=== PATIENT | female | born 1935 | race Caucasian/White ===

== ENCOUNTER → 2021-07-06 17:51 | Outpatient (CLI) | payer MEDICARE, OTHER, SELFPAY ==
[2021-07-06 18:15] LABS: Alanine Aminotransferase 15 U/L (12-78); Albumin Level 3.7 g/dl (3.5-5.0); Albumin/Globulin Ratio 1.2 (1.1-1.8); Alkaline Phosphatase 86 U/L (38-126); Anion Gap 11.6 mEq/L (5-15); Aspartate Amino Transferase 53 U/L (14-36); Bilirubin,Total 0.6 mg/dl (0.2-1.3); Blood Urea Nitrogen 9 mg/dl (7-17); Calcium 9.4 mg/dl (8.4-10.2); Carbon Dioxide 31 mmol/L (22.0-30.0); Chloride 104 mmol/L (98-107); Chol/HDL Ratio 3.1 (1-3.5); Cholesterol 227 mg/dl (140-200); Estimated Glomerular Filt Rate 59 ml/min (>60); GFR (African American) 72 ML/MIN (>60); Glucose 132 mg/dl (74-100); HDL Cholesterol 73 mg/dl (40-60); Potassium 4.6 mmoL/L (3.5-5.1); Sodium 142 mmol/L (136-145); Total Protein,Serum 6.7 g/dl (6.3-8.2); Triglycerides 227 mg/dl (30-150); VLDL Cholesterol 45 mg/dL (0-40)
[2021-07-06 18:26] LABS: Direct LDL Cholesterol 103.67 mg/dL (100-129)
[2021-07-06 20:14] LABS: Thyroid Stimulating Hormone 5.23 uIU/mL (0.465-4.68)
== END ==
PROVIDERS: Visit Provider Nurse Practitioner Family
DX: Z00.00 Encounter for general adult medical examination without abnormal findings (principal); I10 Essential (primary) hypertension; E78.5 Hyperlipidemia, unspecified; E03.9 Hypothyroidism, unspecified
CPT/HCPCS: 80053; 80061; 84443

== ENCOUNTER → 2022-06-11 17:44 | Outpatient (CLI) | payer MEDICARE, OTHER, SELFPAY ==
[2022-06-11 18:20] LABS: Basophils # 0.1 K/mm3 (0-0.2); Basophils % 1.2 % (0.1-2.0); Eosinophils # 0.2 K/mm3 (0.0-0.4); Eosinophils % 1.6 % (0.1-12.0); Hematocrit 43.9 % (37.0-47.0); Lymphocytes # 4.5 K/mm3 (0.7-4.5); Lymphocytes % 41.9 % (10-50); Mean Corpuscular HGB Conc 31.9 g/dL (31.8-35.4); Mean Corpuscular Hemoglobin 30.1 pg (27.0-31.2); Mean Corpuscular Volume 94.5 fl (81-99); Mean Platelet Volume 8.1 fl (7.4-10.4); Monocytes # 0.5 K/mm3 (0.1-1.0); Monocytes % 4.6 % (1.7-9.3); Neutrophils # 5.4 K/mm3 (1.8-7.8); Neutrophils % 50.8 % (37.0-80.0); Platelet Count 315 K/mm3 (142-424); Red Blood Count 4.64 M/mm3 (4.20-5.40); Red Cell Distribution Width 14.1 % (11.5-17.5); White Blood Count 10.7 K/mm3 (4.8-10.8)
[2022-06-11 18:26] LABS: Chloride 100 mmol/L (98-107); Sodium 141 mmol/L (136-145)
[2022-06-11 18:28] LABS: Blood Urea Nitrogen 9 mg/dl (7-17); Estimated Glomerular Filt Rate 95 ml/min (>60); GFR (African American) 114 ML/MIN (>60)
[2022-06-11 18:29] LABS: Alanine Aminotransferase 16 U/L (12-78); Albumin Level 4.3 g/dl (3.5-5.0); Albumin/Globulin Ratio 1.5 (1.1-1.8); Alkaline Phosphatase 134 U/L (38-126); Aspartate Amino Transferase 33 U/L (14-36); Bilirubin,Total 0.2 mg/dl (0.2-1.3); Calcium 8.9 mg/dl (8.4-10.2); Carbon Dioxide 30 mmol/L (22.0-30.0); Globulin 2.8 g/dL (1.3-3.2); Glucose 135 mg/dl (74-100); Total Protein,Serum 7.1 g/dl (6.3-8.2)
[2022-06-11 19:00] LABS: Thyroid Stimulating Hormone 6.28 uIU/mL (0.465-4.68)
== END ==
PROVIDERS: PCP Family Medicine; Visit Provider Student in an Organized Health Care Education/Training Program
DX: E03.9 Hypothyroidism, unspecified (principal); I10 Essential (primary) hypertension
CPT/HCPCS: 80053; 84443; 85025

== ENCOUNTER 2022-07-02 13:51 | Emergency (ER) | payer MEDICARE, OTHER, SELFPAY ==
[2022-07-02 13:50] VITALS: BP 146/61; PULSE 75; RESP 18; O2SAT 98
[2022-07-02 13:53] VITALS: BP 160/68; PULSE 72; RESP 18; TEMP 36.9; O2SAT 98; BMI 23.0
[2022-07-02 14:00] VITALS: BP 151/75; PULSE 75; RESP 18; O2SAT 98
--- NOTE | 2022-07-02 14:05 | XR_ITS ---
FINAL REPORT CLINICAL HISTORY: low back pain, lumbar radic FINDINGS: AP and lateral views were obtained. There are severe L1 and moderate L3 and L5 compression fractures of uncertain age. Kyphoplasty is centered at L1. There is mild retrolisthesis of L1 on L2. There is mild leftward curvature. IMPRESSION: Severe and moderate compression fractures of indeterminate age. If indicated, MRI could further evaluate. Reviewed, Interpreted and Dictated by Kostas Bowman III, MD Transcribed by Fer Purdy Authenticated and . [facility]
--- NOTE | 2022-07-02 14:06 | HMH.EDBACK ---
Discharge Plan Disposition Patient Disposition: Home, Self-Care Prescriptions Prescriptions: New prednisone 10 mg tablet 10 mg PO DAILY Qty: 54 0RF Rx Instructions: Please take 60 mg p.o. daily for 2 days followed by 50 mg p.o. daily for 2 days followed by 40 mg daily for 2 days followed by 30 mg daily for 2 days followed by 20 mg daily for 2 days followed by 10 mg daily for 2 days No Action levothyroxine [Synthroid] 50 mcg tablet 50 mcg PO DAILY memantine [Namenda] 10 mg tablet 10 mg PO BID donepezil [Aricept] 10 mg tablet 10 mg PO DAILY cyanocobalamin (vitamin B-12) 1,000 mcg capsule 1,000 mcg PO DAILY Referrals Follow up/Referrals: You Norris MD [Primary Care Provider] - See instructions Activity Restrictions/Add. Instructions Additional Instructions/Restrictions: I recommend that you call your PCP tomorrow to get set up for a back brace. Please tell him that you have been diagnosed with a subacute compression fracture that does not require surgical intervention but could benefit from bracing. Please ensure that you return with any new symptoms that include bowel or bladder incontinence, numbness within your groin. Clinical Impressions Clinical Impression: Compression fracture, Acute lumbar radiculopathy Instructions Patient Instructions: DI for Low Back Pain Discharge ED Provider: Dax Jacobs Back Pain HPI General Chief Complaint: Back Pain/Injury Stated Complaint: back pain Time Seen by Provider: 07/02/22 14:00 Mode of Arrival: EMS Source of Information: Patient Limitations: No Limitations Description of Symptoms (Recalled from ER Triage Doc. by RN): Pt c/o back pain that is causing tingling in BLE. Advises that she moved a large mum yesterday and thinks that may be the cause. History of Present Illness HPI Narrative: Patient is a 87-year-old female with a past medical history of hypothyroidism and hypertension who presents with concern for back pain and bilateral lower extremity tingling. She states that about a month ago she had a ground-level fall and has been having some back pain since then. She has been evaluated by her PCP for this who did not think that she needed any x-rays at that time and she had been improving but she says that she was moving a large plant yesterday and since then has now been having some tingling that is going down both of her legs. She says that the tingling in the right leg is constant but she has intermittent tingling in her left leg. She says it is worse when she raises her legs up. Her symptoms are improved with leaning forward. Denies any bowel or bladder incontinence. Denies any saddle anesthesia. Related Data Home Medications Medication Instructions Recorded Confirmed donepezil 10 mg tablet (Aricept) 10 mg PO DAILY 06/11/22 06/20/22 levothyroxine 50 mcg tablet 50 mcg PO DAILY 06/11/22 06/20/22 (Synthroid) memantine 10 mg tablet (Namenda) 10 mg PO BID 06/11/22 06/20/22 cyanocobalamin (vitamin B-12) 1,000 mcg PO DAILY 06/20/22 06/20/22 1,000 mcg capsule Previous Rx's Medication Instructions Recorded prednisone 10 mg tablet 10 mg PO DAILY #54 tabs 07/02/22 Allergies Allergy/AdvReac Type Severity Reaction Status Date / Time CODEINE Allergy Unknown JUST DID Uncoded 06/20/22 16:07 NOT FEEL RIGHT From PERCOCET Allergy Unknown Uncoded 06/20/22 16:07 NSAID Allergy Unknown Uncoded 06/20/22 16:07 [facility] Medical History Alzheimer disease Hypertension Hypothyroid Social History Smoking Status: Never smoker alcohol intake: never substance use type: denies use current occupational status: retired Travel in the last 8 weeks: None ROS Obtained: Yes All systems reviewed & no additional complaints except as documented A 14 point review system was obtained and otherwise negativ
--- NOTE | 2022-07-02 14:13 | PC.NURSE ---
Pt to rad
--- NOTE | 2022-07-02 14:23 | PC.NURSE ---
pt back from radiology
[2022-07-02 14:30] VITALS: BP 142/74; PULSE 81; RESP 18; O2SAT 98
--- NOTE | 2022-07-02 15:33 | PC.NURSE ---
CARE MANAGEMENT HAS APPROVED MRI , DIONICIO NOTIFIED
--- NOTE | 2022-07-02 15:38 | MR_ITS ---
PROCEDURE INFORMATION: Exam: MR Lumbar Spine Without Contrast Exam date and time: 07/02/2022 4:23 PM Age: 87 years old Clinical indication: Low back pain; Additional info: Fractures. Bilateral leg tingling and pain worse in right leg. No injury or trauma. Patient fell 1 month ago. [place] a pop in back. TECHNIQUE: Imaging protocol: Magnetic resonance imaging of the lumbar spine without contrast. COMPARISON: CR XR LUMBAR SPINE 2-3V 07/02/2022 2:05 PM FINDINGS: Bones/joints: There is a chronic compression fracture deformity at L1 with greater than 50% decrease in vertebral body height. Subacute compression fracture deformity L3 with approximate 50% decrease in vertebral body height of the mid aspect of the L3 vertebral body. At L5:Mild subacute compression fracture deformity L5 with edematous changes involving the superior vertebral endplate. Approximate 30% decrease in vertebral body height. Spinal cord: Visualized cord, conus medullaris and cauda equina are unremarkable without compression. L1-L2: The conus extends inferiorly to the level of L1-L2. At The 2-2.5 mm retropulsion of the posterosuperior and inferior vertebral endplates is demonstrated. Borderline spinal canal narrowing. Moderate-moderately severe bilateral neural foraminal stenosis. L2-L3: 2-2.5 mm broad-based and lateral disc bulge. Mild-moderate bilateral neural foraminal stenosis. L3-L4: 3 mm broad based on lateral disc bulge. AP dimensions of the spinal canal: 9 mm. L4-L5: Moderate facet and mild-moderate ligamentum flavum hypertrophy. Approximate 2 mm disc bulge. L5-S1: 4 mm degenerative anterolisthesis of L5 with respect S1. Spinal canal neural foramina patent. Soft tissues: Unremarkable. IMPRESSION: 1. Subacute compression fracture deformity L3 with approximate 50% decrease in vertebral body height of the mid aspect of the L3 vertebral body. 2. Subacute compression fracture deformity L5 with edematous changes involving the superior vertebral endplate. Approximate 30% decrease in vertebral body height. 3. Chronic L1 compression fracture deformity with greater than 50% decrease in vertebral body height.
[2022-07-02 19:00] VITALS: BP 149/69; PULSE 79; RESP 16; TEMP 36.9; O2SAT 99
== END 2022-07-02 19:02 | disposition home or self-care (01) ==
PROVIDERS: Emergency Provider Student in an Organized Health Care Education/Training Program; PCP Family Medicine
DX: M48.56XA Collapsed vertebra, not elsewhere classified, lumbar region, initial encounter for fracture (principal); I10 Essential (primary) hypertension; E03.9 Hypothyroidism, unspecified; G30.9 Alzheimer's disease, unspecified; F02.80 Dementia in other diseases classified elsewhere, unspecified severity, without behavioral disturbance, psychotic disturbance, mood disturbance, and anxiety; Z79.52 Long term (current) use of systemic steroids; Z79.899 Other long term (current) drug therapy; Z88.5 Allergy status to narcotic agent; Z88.6 Allergy status to analgesic agent
CPT/HCPCS: 72100; 72148; 76376; 99285

== ENCOUNTER 2022-09-06 20:21 | Inpatient (IN) | payer MEDICARE, OTHER, SELFPAY ==
[2022-09-06 20:21] VITALS: BP 103/59; PULSE 87; RESP 19; TEMP 36.5; O2SAT 99; BMI 21.4
--- NOTE | 2022-09-06 20:27 | ECG_ITS ---
APPROVED REPORT Exam: Resting ECG HR:91 bpm ECG Measurements Heart Rate 91 AXES QRSd 73 QRS 70 QT 339 T 244 QTc 388 Conclusion ATRIAL FIBRILLATION WITH ABERRANT CONDUCTION OR VENTRICULAR PREMATURE COMPLEXES ST DEVIATION AND MODERATE T-WAVE ABNORMALITY, CONSIDER ANTEROLATERAL ISCHEMIA [-0.1+ mV T-WAVE IN V3-V6] ST DEVIATION AND MODERATE T-WAVE ABNORMALITY, CONSIDER INFERIOR ISCHEMIA [-0.1+ mV T-WAVE IN II/aVF] ABNORMAL ECG UNCONFIRMED REPORT Electronically signed by : Sherman Rodriguez MD 09/07/2022 12:11:03
[2022-09-06 20:54] LABS: ABG Base Excess -5.3 mmol/L (-2.4-2.3); ABG Oxygen Saturation 97 % (90-100); ABG PCO2 29.4 mmhg (35.0-45.0); ABG PH 7.43 mmol/L (7.35-7.45); ABG PO2 97.6 mmhg (80-100); ABG TCO2 19.9 mmhg (23-27)
[2022-09-06 20:56] LABS: Allen's Test Non Applicable; Oxygen 2LPM %; Source Right Femoral
[2022-09-06 21:06] VITALS: BMI 21.4
--- NOTE | 2022-09-06 21:08 | CT_ITS ---
PROCEDURE INFORMATION: Exam: CT Abdomen And Pelvis With Contrast Exam date and time: 09/06/2022 9:40 PM Age: 87 years old Clinical indication: Other: Gi bleed; Additional info: Upper lower gi bleed TECHNIQUE: Imaging protocol: Computed tomography of the abdomen and pelvis with contrast. Radiation optimization: All CT scans at this facility use at least one of these dose optimization techniques: automated exposure control; mA and/or kV adjustment per patient size (includes targeted exams where dose is matched to clinical indication); or iterative reconstruction. Contrast material: ISOVUE; Contrast volume: 75 ml; Contrast route: IV; COMPARISON: MR LUMBAR SPINE WO CON 07/02/2022 4:23 PM FINDINGS: Liver: 14 mm hypodensity within the liver near the falciform. Gallbladder and bile ducts: No calcified stones. No ductal dilation. Pancreas: Normal enhancement. No ductal dilation. Spleen: No splenomegaly. Adrenal glands: No mass. Kidneys and ureters: 14 mm left renal cyst. Stomach and bowel: Trace high-density material within the mid descending and distal rectosigmoid near the anus. Appendix: No evidence of appendicitis. Intraperitoneal space: No significant fluid collection. No free air. Vasculature: Calcified atherosclerosis. No abdominal aortic aneurysm. Lymph nodes: No enlarged lymph nodes. Urinary bladder: Sanchez catheter within the urinary bladder which is decompressed and not well evaluated. Reproductive: No acute abnormality. Bones/joints: Stable severe compression deformities of L1 and L3 and moderate compression deformity of L5. Soft tissues: No soft tissue swelling. IMPRESSION: Trace high-density material within the mid descending and distal rectosigmoid near the anus which is nonspecific but may be related to the history of GI bleed. Other chronic and incidental findings described above.
--- NOTE | 2022-09-06 21:08 | XR_ITS ---
PROCEDURE INFORMATION: Exam: XR Chest Exam date and time: 09/06/2022 9:58 PM Age: 87 years old Clinical indication: Other: Syncope, gi bleed TECHNIQUE: Imaging protocol: Radiologic exam of the chest. Views: 1 view. COMPARISON: CT ABDOMEN PELVIS W CON 09/06/2022 9:40 PM FINDINGS: Lungs: Interstitial coarsening. No consolidation. Pleural spaces: No pneumothorax. Heart/Mediastinum: No cardiomegaly. Bones/joints: Degenerative changes of the shoulders. IMPRESSION: Chronic changes without acute process.
[2022-09-06 21:15] LABS: Coronavirus 19, PCR Not Detected (NotDetected); Influenza A, PCR Not Detected (NotDetected); Influenza B, PCR Not Detected (NotDetected)
[2022-09-06 21:15] LABS: Microscopic, Urine URINE MICROSCOPIC (MICROSCOPIC)
[2022-09-06 21:20] LABS: Basophils # 0.1 K/mm3 (0-0.2); Basophils % 0.3 % (0.1-2.0); Eosinophils % 0.3 % (0.1-12.0); Hematocrit 28.8 % (37.0-47.0); Hemoglobin 9.1 g/dL (12.2-16.2); Lymphocytes # 1.5 K/mm3 (0.7-4.5); Lymphocytes % 9.5 % (10-50); Mean Corpuscular HGB Conc 31.8 g/dL (31.8-35.4); Mean Corpuscular Volume 97.5 fl (81-99); Mean Platelet Volume 9.9 fl (7.4-10.4); Monocytes # 0.6 K/mm3 (0.1-1.0); Monocytes % 3.4 % (1.7-9.3); Neutrophils # 13.9 K/mm3 (1.8-7.8); Neutrophils % 86.6 % (37.0-80.0); Platelet Count 343 K/mm3 (142-424); Red Blood Count 2.96 M/mm3 (4.20-5.40); White Blood Count 16.1 K/mm3 (4.8-10.8)
[2022-09-06 21:21] LABS: Appearance,Urine SL CLOUDY (Clear); Blood, Urine TRACE-I (Negative); Color,Urine YELLOW (Yellow); Glucose,Urine (UA) Negative (Negative); Ketones,Urine 3+ (Negative); Leukocyte Esterase,Urine Negative (Negative); Nitrate,Urine Negative (Negative); PH,Urine 5.5 (5.0-8.5); Protein,Urine TRACE (Negative); Specific Gravity, Urine 1.025 (1.005-1.030); Urobilinogen,Urine 0.2 EU/dl (0.2)
[2022-09-06 21:24] LABS: Chloride 101 mmol/L (98-107); Potassium 3.1 mmoL/L (3.5-5.1); Sodium 137 mmol/L (136-145)
[2022-09-06 21:26] LABS: Bilirubin,Urine 3+ (Negative)
[2022-09-06 21:26] LABS: INR 1.06 (0.9-1.1); Prothrombin Time 11.4 seconds (10.1-12.5)
--- NOTE | 2022-09-06 21:26 | HMH.EDGIBL ---
Discharge Plan Disposition Patient Disposition: Admitted As Inpatient Chief Complaint: GI Bleed Clinical Impressions Clinical Impression: Acute upper GI bleed Discharge ED Provider: Llody Thorpe GI Bleed HPI General Chief complaint: GI Bleed Stated complaint: Poss GI bleed Time Seen by Provider: 09/06/22 21:26 Mode of Arrival: EMS Source of Information: Patient, Significant Other and EMS Limitations: Altered Mental Status Description of Symptoms (Recalled from ER Triage Doc. by RN): Pt here per EMS d/t reported episode of coffee ground emesis, dark red & clotted blood per rectum, and syncopal episode. Pt denies any pain. ABD is soft, nontender. Pt A&O to person on arrival. Family states pt had a T-spine vertebral fx a few months ago and has been taking Aleve BID for pain relief. She has a hx of afib but is not on any thinners or rate control medications. History of Present Illness HPI Narrative: pt with upper gi bleed and has weakness - hx of dementia and has been having nsaif daily for weeks - MD complaint: coffee ground emesis and melena Onset (ago): day(s) Severity: moderate Context: other (nsaif) Associated symptoms: denies other symptoms Related Data Home Medications Medication Instructions Recorded Confirmed donepezil 10 mg tablet (Aricept) 10 mg PO DAILY memory 06/11/22 09/06/22 levothyroxine 50 mcg tablet 50 mcg PO DAILY hypothyroid 06/11/22 09/06/22 (Synthroid) memantine 10 mg tablet (Namenda) 10 mg PO BID memory 06/11/22 09/06/22 cyanocobalamin (vitamin B-12) 1,000 mcg PO DAILY supplement 06/20/22 09/06/22 1,000 mcg capsule Allergies Allergy/AdvReac Type Severity Reaction Status Date / Time From PERCOCET Allergy Unknown Uncoded 06/20/22 16:07 NSAID Allergy Unknown Uncoded 06/20/22 16:07 CODEINE AdvReac Mild JUST DID Uncoded 09/06/22 21:15 NOT FEEL RIGHT [facility] Disclaimer: The information contained in this section may have been updated after the patient was seen, as this information can be updated by other users. Medical History (Updated 09/06/22 @ 22:45 by Lloyd Thorpe MD) Alzheimer disease Hypertension Hypothyroid Surgical History (Updated 09/06/22 @ 21:41 by Georgina Arita RN) Hx of cholecystectomy Social History Smoking Status: Never smoker alcohol intake: never substance use type: denies use current occupational status: retired Travel in the last 8 weeks: None ROS Obtained: Yes All systems reviewed & no additional complaints except as documented Physical Exam General General appearance: alert Head Head exam: normocephalic Eye Eye exam: Present PERRL and EOMI; Absent scleral icterus ENT ENT exam: Present mucous membranes moist Neck Neck exam: Absent trachea midline Respiratory Respiratory exam: Present other (dec bs bilat ); Absent respiratory distress Cardiovascular Cardiovascular exam: Present regular rate, systolic murmur and +S4 Abdominal Exam Abdominal exam: Present soft; Absent tenderness Rectal Exam Rectal exam: Present black stool Extremities Exam Extremities exam: Present full ROM Neurological Exam Neurological exam: Present alert and CN II-XII intact Skin Skin exam: Absent rash Medical Decision Making Medical Records Medical records reviewed: Yes I reviewed the patient's medical records. Prasad Inquiry Pt receiving controlled substance: No Vital Signs: 09/06/22 20:21 09/06/22 22:22 Temperature 97.7 F Temperature Source Rectal Pulse Rate 100 H Pulse Rate [Right] 87 Respiratory Rate 19 17 Blood Pressure 112/75 Blood Pressure [Right Arm] 103/59 L Blood Pressure Mean [Right Arm] 73 Blood Pressure Source [Right Arm] Automatic Cuff 02 Sat by Pulse Oximetry 99 100 Oxygen Delivery Method Room Air Room Air Lab Data Lab results reviewed: Yes I reviewed the patient's lab results. Lab Results 09/06/22 20:40: WBC 16.1 H, RBC 2.96 L, Hgb 9.1 L,
[2022-09-06 21:27] LABS: Alanine Aminotransferase 12 U/L (12-78); Albumin Level 2.7 g/dl (3.5-5.0); Albumin/Globulin Ratio 1.1 (1.1-1.8); Alkaline Phosphatase 64 U/L (38-126); Amylase 52 U/L (30-110); Anion Gap 19.1 mEq/L (5-15); Aspartate Amino Transferase 21 U/L (14-36); Bilirubin,Total 0.5 mg/dl (0.2-1.3); Blood Urea Nitrogen 34 mg/dl (7-17); Calcium 8.4 mg/dl (8.4-10.2); Carbon Dioxide 20 mmol/L (22.0-30.0); Creatinine Clearance Estimated 31 mL/min (50-200); Estimated Glomerular Filt Rate 59 ml/min (>60); GFR (African American) 72 ML/MIN (>60); Globulin 2.4 g/dL (1.3-3.2); Glucose 110 mg/dl (74-100); Lipase 59 U/L (23-300); Total Protein,Serum 5.1 g/dl (6.3-8.2)
--- NOTE | 2022-09-06 21:32 | PC.NURSE ---
Discussed code status with pt's son, he states she is a full code.
[2022-09-06 21:33] LABS: MANUAL DIFFERENTIAL MANUAL DIFFERENTIAL (MANUAL DIFF)
--- NOTE | 2022-09-06 21:34 | PC.NURSE ---
Pt gone to RAD
[2022-09-06 21:40] LABS: Troponin I 0.04 ng/ml (0.00-0.034)
[2022-09-06 21:43] LABS: Occult Blood,Stool Negative (Negative)
[2022-09-06 21:45] LABS: T4 (Thyroxine) 6.8 ug/dl (5.53-11.0)
--- NOTE | 2022-09-06 21:49 | PC.NURSE ---
Pt back in room from RAD
[2022-09-06 21:58] LABS: Thyroid Stimulating Hormone 3.91 uIU/mL (0.465-4.68)
[2022-09-06 22:02] LABS: RBC,Urine Occasional #/hpf (0-3); Squamous Epithelial Cell,Urine Occasional #/hpf (0-5); WBC,Urine Occasional #/hpf (0-3)
[2022-09-06 22:18] LABS: Lymphocytes % 3 % (10-50); Monocytes % 2 % (2-9); Neutrophils % 95 % (42-76); Total Cells Counted 100
[2022-09-06 22:19] LABS: Platelet Estimate Normal; RBC Morphology Normal
[2022-09-06 22:22] VITALS: BP 112/75; PULSE 100; RESP 17; O2SAT 100
--- NOTE | 2022-09-06 22:24 | PC.NURSE ---
Rechecked pt condition. No needs or complaints voiced at this time.
[2022-09-06 22:36] VITALS: BP 117/62; PULSE 91; RESP 16; TEMP 36.6; O2SAT 100; BMI 19.1
--- NOTE | 2022-09-06 23:04 | PC.NURSE ---
Son was given pt's gold watch, gold necklace, gold bracelet, and 3 gold rings.
[2022-09-07] VITALS (18 sets, daily range): BP systolic 99–130; BP diastolic 53–81; PULSE 72–105; RESP 16–20; TEMP 36.3–36.9; O2SAT 95–100; BMI 204065.2; BMI 18.5
--- NOTE | 2022-09-07 00:22 | PC.NURSE ---
Lab called to confirm lab orders for CBC, CMP, and troponin. s/w Hospitalist and he confirmed CBC & CMP is for AM labs on 09/07. d/c ER troponin orders, will keep hospitalist's q6h troponin orders.
--- NOTE | 2022-09-07 01:25 | EXP.HP ---
History of Present Illness *Admission Date: 09/07/22 *Reason for visit:: GI bleed, *History of present illness: patient has been averaging 400mg of IBU bid for several months , She fell causing a fracture to one of her lower spinal vertebrae. she uses a walker to ambulate . and has dementia / short tem memory lose. Additional HPI, I visited patient this morning on rounds and she does not remember the events from yesterday or why she is here in the hospital. She does report that her daughter called an ambulance, but she does not know why. Patient reports feeling okay, she denies any aches or pains, she is unaware of any blood in her stool or vomiting. She does report having some back pain, otherwise patient has no concerns or complaints. [facility] Disclaimer: The information contained in this section may have been updated after the patient was seen, as this information can be updated by other users. Medical History Alzheimer disease Hypertension Hypothyroid Surgical History Hx of cholecystectomy Social History Smoking Status: Never smoker alcohol intake: never substance use type: denies use current occupational status: retired Travel in the last 8 weeks: None Review of Systems Review of Systems Review of systems (narrative): patient has dementia and family in room giving some history . in pain on regular basis and use walker to ambulate Constitutional Constitutional: Reports anorexia and Reports frequent falls Comments: per family not eating much and losing weight since fall in OCT Eyes Eyes: Reports system reviewed and no additional complaints, except as documented ENT Ears, Nose, Mouth, and Throat: Reports system reviewed and no additional complaints, except as documented and Reports disequilibrium *Cardiovascular Cardiovascular: Reports system reviewed and no additional complaints, except as documented *Respiratory Respiratory: Reports system reviewed and no additional complaints, except as documented *Gastrointestinal Gastrointestinal: Reports change in stool character and Reports hematemesis Comments: wears diaper , black stool and vomited bright red blood *Genitourinary Genitourinary: Reports system reviewed and no additional complaints, except as documented Comments: wears diaper *Musculoskeletal Musculoskeletal: Reports as per HPI, Reports abnormal gait, Reports atrophy and Reports back pain Comments: fractured vertebrae in OCT Integumentary/Breasts Skin/Breast: Reports system reviewed and no additional complaints, except as documented *Neurologic Neurologic: Reports as per HPI, Reports abnormal gait, Reports confusion, Reports disequilibrium, Reports localized weakness, Reports frequent falls and Reports memory loss Psychiatric Psychiatric: Reports change in appetite, Reports confusion and Reports memory loss Endocrine Endocrine: Reports system reviewed and no additional complaints, except as documented Hematologic/Lymphatic Hematologic/Lymphatic: Reports system reviewed and no additional complaints, except as documented Allergic/Immunologic Allergic/Immunologic: Reports system reviewed and no additional complaints, except as documented Meds Home Medications and Allergies Home Medications Medication Instructions Recorded Confirmed Type donepezil 10 mg tablet (Aricept) 10 mg PO DAILY memory 06/11/22 09/06/22 History levothyroxine 50 mcg tablet 50 mcg PO DAILY hypothyroid 06/11/22 09/06/22 History (Synthroid) memantine 10 mg tablet (Namenda) 10 mg PO BID memory 06/11/22 09/06/22 History cyanocobalamin (vitamin B-12) 1,000 mcg PO DAILY supplement 06/20/22 09/06/22 History 1,000 mcg capsule New Prescriptions to Start Prescriptions: Allergies Allergy/AdvReac Type Severity Reaction Status Date / Time From [facility]
[2022-09-07 01:56] LABS: Troponin I 0.06 ng/ml (0.00-0.034)
--- NOTE | 2022-09-07 06:46 | PC.NURSE ---
PATIENT ARRIVED ON THE FLOOR AT 2330 VIA STRETCHER. WAS A/O X 3 BUT BECAME CONFUSED THE NIGHT WORE ON. THERE HAS BEEN NO RECTAL BLEEDING OR HEMATEMESIS SINCE ADMISSION. HAS BEEN NPO SINCE [place].
[2022-09-07 07:46] LABS: Basophils # 0.1 K/mm3 (0-0.2); Basophils % 0.4 % (0.1-2.0); Eosinophils # 0.1 K/mm3 (0.0-0.4); Eosinophils % 0.8 % (0.1-12.0); Hematocrit 24.1 % (37.0-47.0); Lymphocytes # 2.6 K/mm3 (0.7-4.5); Lymphocytes % 23.5 % (10-50); Mean Corpuscular HGB Conc 33.1 g/dL (31.8-35.4); Mean Corpuscular Hemoglobin 30.6 pg (27.0-31.2); Mean Corpuscular Volume 92.5 fl (81-99); Mean Platelet Volume 8.7 fl (7.4-10.4); Monocytes # 0.3 K/mm3 (0.1-1.0); Monocytes % 3.1 % (1.7-9.3); Neutrophils # 7.9 K/mm3 (1.8-7.8); Neutrophils % 72.2 % (37.0-80.0); Platelet Count 218 K/mm3 (142-424); Red Blood Count 2.61 M/mm3 (4.20-5.40); Red Cell Distribution Width 16.3 % (11.5-17.5); White Blood Count 10.9 K/mm3 (4.8-10.8)
[2022-09-07 08:00] LABS: Chloride 106 mmol/L (98-107)
[2022-09-07 08:01] LABS: Sodium 137 mmol/L (136-145)
[2022-09-07 08:03] LABS: Alanine Aminotransferase 9 U/L (12-78); Alkaline Phosphatase 51 U/L (38-126); Aspartate Amino Transferase 21 U/L (14-36); Bilirubin,Total 0.4 mg/dl (0.2-1.3); Blood Urea Nitrogen 28 mg/dl (7-17); Creatinine Clearance Estimated 30 mL/min (50-200); Estimated Glomerular Filt Rate 95 ml/min (>60); GFR (African American) 114 ML/MIN (>60)
[2022-09-07 08:04] LABS: Albumin Level 2.3 g/dl (3.5-5.0); Albumin/Globulin Ratio 1.1 (1.1-1.8); Anion Gap 8.5 mEq/L (5-15); Calcium 7.8 mg/dl (8.4-10.2); Carbon Dioxide 25 mmol/L (22.0-30.0); Globulin 2.1 g/dL (1.3-3.2); Glucose 92 mg/dl (74-100); Total Protein,Serum 4.4 g/dl (6.3-8.2)
[2022-09-07 08:35] LABS: Troponin I 0.06 ng/ml (0.00-0.034)
[2022-09-07 08:37] LABS: Potassium 2.5 mmoL/L (3.5-5.1)
--- NOTE | 2022-09-07 09:28 | EXP.SURG.CON ---
History of Present Illness *Admission Date: 09/07/22 *Reason for visit:: GI bleed *History of present illness: Patient is a 87-year-old female with history of dementia. She had thoracic spine compression fracture several months ago. She has had pain and been taking appreciable amount of NSAIDs for pain relief. She was brought into the emergency department overnight by EMS with reported episodes of coffee-ground emesis and passage of blood per rectum. Her baseline hemoglobin is 14. Admission hemoglobin of 9.1. Hemoglobin 8.0 this morning. Interestingly patient had a stool for occult blood which was negative. Her BUN is 28 with a creatinine of 0.6. [facility] Disclaimer: The information contained in this section may have been updated after the patient was seen, as this information can be updated by other users. Medical History Alzheimer disease Hypertension Hypothyroid Surgical History Hx of cholecystectomy Social History Smoking Status: Never smoker alcohol intake: never substance use type: denies use current occupational status: retired Travel in the last 8 weeks: None Review of Systems Review of Systems Review of systems:: unable to obtain Constitutional Constitutional: Reports frequent falls ENT Ears, Nose, Mouth, and Throat: Reports disequilibrium *Musculoskeletal Musculoskeletal: Reports abnormal gait *Neurologic Neurologic: Reports as per HPI, Reports abnormal gait, Reports confusion, Reports disequilibrium, Reports localized weakness, Reports frequent falls and Reports memory loss Psychiatric Psychiatric: Reports confusion and Reports memory loss Meds Home Medications and Allergies Home Medications Medication Instructions Recorded Confirmed Type donepezil 10 mg tablet (Aricept) 10 mg PO DAILY memory 06/11/22 09/06/22 History levothyroxine 50 mcg tablet 50 mcg PO DAILY hypothyroid 06/11/22 09/06/22 History (Synthroid) memantine 10 mg tablet (Namenda) 10 mg PO BID memory 06/11/22 09/06/22 History cyanocobalamin (vitamin B-12) 1,000 mcg PO DAILY supplement 06/20/22 09/06/22 History 1,000 mcg capsule New Prescriptions to Start Prescriptions: Allergies Allergy/AdvReac Type Severity Reaction Status Date / Time From PERCOCET Allergy Unknown Uncoded 06/20/22 16:07 NSAID Allergy Unknown Uncoded 06/20/22 16:07 CODEINE AdvReac Mild JUST DID Uncoded 09/06/22 21:15 NOT FEEL RIGHT Exam (Inpt) Vital signs and Labs for Last 24 Hours: Temp Pulse Resp BP Pulse Ox 97.9 F 80 18 100/53 L 100 09/07/22 07:58 09/07/22 07:58 09/07/22 07:58 09/07/22 07:58 09/07/22 07:58 Laboratory Results - last 24 hr 09/06/22 20:40: WBC 16.1 H, RBC 2.96 L, Hgb 9.1 L, Hct 28.8 L, MCV 97.5, MCH 31.0, MCHC 31.8, RDW 16.0, Plt Count 343, MPV 9.9, Neut % (Auto) 86.6 H, Lymph % (Auto) 9.5 L, Swisher % (Auto) 3.4, Eos % (Auto) 0.3, Baso % (Auto) 0.3, Neut # (Auto) 13.9 H, Lymph # (Auto) 1.5, Swisher # (Auto) 0.6, Eos # (Auto) 0.0, Baso # (Auto) 0.1, Total Counted 100, Neutrophils % (Manual) 95 H, Lymphocytes % (Manual) 3 L, Monocytes % (Manual) 2, Platelet Estimate Normal, RBC Morphology Normal 09/06/22 20:40: PT 11.4, INR 1.06 09/06/22 20:40: Sodium 137, Potassium 3.1 L, Chloride 101, Carbon Dioxide 20 L, Anion Gap 19.1 H, BUN 34 H, Creatinine 0.90, Estimated Creat Clear 31, Estimated GFR 59, Est GFR ( Amer) 72, Glucose 110 H, Calcium 8.4, Total Bilirubin 0.5, AST 21, ALT 12, Alkaline Phosphatase 64, Troponin I 0.04 H, Total Protein 5.1 L D, Albumin 2.7 L, Globulin 2.4, Albumin/Globulin Ratio 1.1, Amylase 52, Lipase 59, TSH 3.91, Thyroxine (T4) 6.8 09/06/22 20:40: Stool Occult Blood Negative 09/06/22 20:45: Urine Color Yellow, Urine Appearance Sl cloudy, Urine pH 5.5, Ur Specific [place] 1.025, Urine Protein Trace, Urine Glucose (UA) Negativ
[2022-09-07 11:00] LABS: Chloride 106 mmol/L (98-107)
[2022-09-07 11:01] LABS: Basophils % 0.3 % (0.1-2.0); Eosinophils # 0.2 K/mm3 (0.0-0.4); Eosinophils % 2.2 % (0.1-12.0); Hematocrit 22.7 % (37.0-47.0); Hemoglobin 7.5 g/dL (12.2-16.2); Lymphocytes # 2.6 K/mm3 (0.7-4.5); Lymphocytes % 24.2 % (10-50); Mean Corpuscular Hemoglobin 30.5 pg (27.0-31.2); Mean Corpuscular Volume 92.5 fl (81-99); Mean Platelet Volume 8.8 fl (7.4-10.4); Monocytes # 0.4 K/mm3 (0.1-1.0); Monocytes % 3.2 % (1.7-9.3); Neutrophils # 7.6 K/mm3 (1.8-7.8); Neutrophils % 70.1 % (37.0-80.0); Platelet Count 216 K/mm3 (142-424); Red Blood Count 2.46 M/mm3 (4.20-5.40); Red Cell Distribution Width 16.2 % (11.5-17.5); Sodium 137 mmol/L (136-145); White Blood Count 10.8 K/mm3 (4.8-10.8)
[2022-09-07 11:03] LABS: Alanine Aminotransferase 10 U/L (12-78); Aspartate Amino Transferase 20 U/L (14-36); Blood Urea Nitrogen 25 mg/dl (7-17); Creatinine Clearance Estimated 30 mL/min (50-200); Estimated Glomerular Filt Rate 117 ml/min (>60); GFR (African American) 141 ML/MIN (>60)
[2022-09-07 11:04] LABS: Albumin Level 2.3 g/dl (3.5-5.0); Alkaline Phosphatase 52 U/L (38-126); Anion Gap 8.6 mEq/L (5-15); Bilirubin,Total 0.4 mg/dl (0.2-1.3); Calcium 7.8 mg/dl (8.4-10.2); Carbon Dioxide 25 mmol/L (22.0-30.0); Globulin 2.2 g/dL (1.3-3.2); Glucose 87 mg/dl (74-100); Total Protein,Serum 4.5 g/dl (6.3-8.2)
[2022-09-07 11:16] LABS: Troponin I 0.06 ng/ml (0.00-0.034)
[2022-09-07 11:26] LABS: Potassium 2.6 mmoL/L (3.5-5.1)
--- NOTE | 2022-09-07 13:38 | ECG_ITS ---
APPROVED REPORT Exam: Resting ECG HR:71 bpm ECG Measurements Heart Rate 71 AXES ID 117 P 67 QRSd 80 QRS 38 QT 392 T 91 QTc 414 Conclusion SINUS RHYTHM WITH SHORT ID INTERVAL WITH OCCASIONAL SUPRAVENTRICULAR PREMATURE COMPLEXES LOW QRS VOLTAGE [QRS DEFLECTION < 0.5/1.0 mV IN LIMB/CHEST LEADS] ABNORMAL ECG UNCONFIRMED REPORT Electronically signed by : Sherman Rodriguez MD 09/09/2022 11:13:30
[2022-09-07 14:25] LABS: Chloride 106 mmol/L (98-107); Potassium 3.2 mmoL/L (3.5-5.1); Sodium 137 mmol/L (136-145)
[2022-09-07 14:28] LABS: Blood Urea Nitrogen 22 mg/dl (7-17); Creatinine Clearance Estimated 30 mL/min (50-200); Estimated Glomerular Filt Rate 117 ml/min (>60); GFR (African American) 141 ML/MIN (>60)
[2022-09-07 14:29] LABS: Anion Gap 8.2 mEq/L (5-15); Carbon Dioxide 26 mmol/L (22.0-30.0); Glucose 85 mg/dl (74-100)
[2022-09-07 14:41] LABS: Troponin I 0.05 ng/ml (0.00-0.034)
--- NOTE | 2022-09-07 15:12 | P.PCN_ITS ---
Procedure: Date: 09/07/22 Patient Date of :: 1935 Procedure Performed:: Esophagogastroduodenoscopy Indications:: Patient is an 87-year-old female from [place] who was brought into the emergency department overnight with history consistent with upper GI bleeding. She had a thoracic spine fracture several months ago and has reportedly been taking some NSAIDs for pain relief. She was admitted with reported episodes of coffee-ground emesis and passage of blood per rectum. Baseline hemoglobin several months ago was 14. Hemoglobin upon presentation was 9.1. At this was 8.0 the following morning and dropped to 7.5. However, she showed no evidence of clinical bleeding. She had stool for Hemoccult which was interestingly negative. Surgical consultation was obtained and plan was made for upper endoscopy for diagnostic and potentially therapeutic purposes. Performing Provider:: Kostas Prieto MD Referring Provider:: Chi Nolan MD Sedation:: MAC sedation Procedure:: Patient was taken to endoscopy procedure room once her potassium was corrected. Adequate intravenous sedation was achieved. Olympus endoscope was inserted via the oropharynx. Esophagus was cannulated. She has some tortuosity to the esophagus consistent with possible esophageal dysmotility. Gastroesophageal junction was encountered at approximately 34 cm from the incisors. Stomach was cannulated and insufflated. Retroflexion revealed a moderate sliding hiatal hernia. There was some diffuse patchy erosive gastritis. In the antrum there was a shallow clean ulcer. In the prepyloric location there was a somewhat more inflamed appearing clean based ulcer. The endoscope was advanced through the pylorus. Within the duodenal bulb there was a large complex hemicircumferential ulcer. It appeared quite inflamed. There was no evidence of any active bleeding and no evidence of any adherent clot. Thorough irrigation was carried out of the ulcer. The endoscope was able to be advanced beyond this and the distal duodenum appeared unremarkable. Once again the endoscope was withdrawn and this large duodenal ulcer was inspected. Due to its large size and complexity it was felt that injection or application of Hemoclip would not be suitable as there was no clearly defined source of pathology amenable to intervention. The stomach was then desufflated and the endoscope was withdrawn. Findings:: Findings of possible esophageal dysmotility Moderate sliding hiatal hernia Patchy erosive gastritis Shallow clean ulceration in the antrum Somewhat larger clean ulceration in the prepyloric location Large complex hemicircumferential ulcer in the duodenal bulb without active bleeding or adherent clot Recommendations:: Would continue high-dose proton pump inhibitors. Patient could require repeat endoscopy in several days for reinspection of this area in the duodenal bulb, particularly if she shows lack of hemoglobin stability with an appropriate response to transfusion if indicated. Would limit to clear liquid diet for now. Complications:: None immediately apparent Estimated blood obtained (mL): 0
--- NOTE | 2022-09-07 15:13 | P.PN_ITS ---
[facility] Disclaimer: The information contained in this section may have been updated after the patient was seen, as this information can be updated by other users. Medical History Alzheimer disease Hypertension Hypothyroid Surgical History Hx of cholecystectomy Social History Smoking Status: Never smoker alcohol intake: never substance use type: denies use current occupational status: retired Travel in the last 8 weeks: None [facility] Anesthesia Checklist Patient Identification Patient Identification: Arm Band Structural Data Admitted From: Inpatient Planned Operative Procedure/s: EGD Consent for Planned Operative Procedure(s) Verified: Yes Verified Documents: Surgical Consent and History and Physical NPO Status Verified Time NPO: 00:00 Additional verifications Anesthesia Reactions: No Airway Assessment C-Spine Mobility Assessed: Yes TMJ Mobility Assessed: Yes Dentition: Edentulous Neurological Assessment Level of Consciousness: Awake Anesthesia Plan Anesthesia Risk discussed: Yes Anesthesia Plan: Verified ASA Class: III Anesthesia Type: MAC
--- NOTE | 2022-09-07 15:31 | SUR.PHASEII ---
1522- detailed report called to cachorro javier in [facility] 1524- pt left in stable condition with all VSS, bed in lowest position and locked/side rails up. Family at bedside
--- NOTE | 2022-09-07 18:58 | PC.NURSE ---
pt alert to person, place, and situation, unable to voice year. pt has c/o pain of ble, mainly rt leg, multiple times t/o shift. treated per nov, notified sindler about pts family voicing concerns about pts leg pain. per sindler stop the iv protonix drip. after EGD, pt has tolerated clear liquids well but does need a lot of encouragment to eat. pt is pleasantly confused at times. [place] ri[place] in place with adequate uop. family at bedside. questions and concerns addressed. no needs at this time.
[2022-09-07 19:05] LABS: Chloride 103 mmol/L (98-107); Sodium 134 mmol/L (136-145)
[2022-09-07 19:07] LABS: Alanine Aminotransferase 13 U/L (12-78); Alkaline Phosphatase 62 U/L (38-126); Aspartate Amino Transferase 22 U/L (14-36); Bilirubin,Total 0.3 mg/dl (0.2-1.3); Blood Urea Nitrogen 17 mg/dl (7-17); Creatinine Clearance Estimated 30 mL/min (50-200); Estimated Glomerular Filt Rate 95 ml/min (>60); GFR (African American) 114 ML/MIN (>60)
[2022-09-07 19:08] LABS: Albumin Level 2.5 g/dl (3.5-5.0); Anion Gap 8.9 mEq/L (5-15); Calcium 8.2 mg/dl (8.4-10.2); Carbon Dioxide 25 mmol/L (22.0-30.0); Globulin 2.4 g/dL (1.3-3.2); Glucose 105 mg/dl (74-100); Total Protein,Serum 4.9 g/dl (6.3-8.2)
[2022-09-07 19:44] LABS: Potassium 2.9 mmoL/L (3.5-5.1)
[2022-09-07 19:53] LABS: Basophils # 0.1 K/mm3 (0-0.2); Basophils % 0.4 % (0.1-2.0); Eosinophils # 0.1 K/mm3 (0.0-0.4); Eosinophils % 0.5 % (0.1-12.0); Lymphocytes # 2.9 K/mm3 (0.7-4.5); Lymphocytes % 20.3 % (10-50); Mean Corpuscular HGB Conc 32.9 g/dL (31.8-35.4); Mean Corpuscular Hemoglobin 30.8 pg (27.0-31.2); Mean Corpuscular Volume 93.5 fl (81-99); Mean Platelet Volume 8.9 fl (7.4-10.4); Monocytes # 0.4 K/mm3 (0.1-1.0); Neutrophils # 10.7 K/mm3 (1.8-7.8); Neutrophils % 75.9 % (37.0-80.0); Platelet Count 254 K/mm3 (142-424); Red Blood Count 2.69 M/mm3 (4.20-5.40); Red Cell Distribution Width 16.3 % (11.5-17.5); White Blood Count 14.2 K/mm3 (4.8-10.8)
[2022-09-07 19:55] LABS: Hemoglobin 8.3 g/dL (12.2-16.2)
[2022-09-07 19:56] LABS: Hematocrit 25.1 % (37.0-47.0)
[2022-09-08] VITALS (62 sets, daily range): BP systolic 56–157; BP diastolic 27–123; PULSE 60–111; RESP 14–24; TEMP 33.1–37.3; O2SAT 86–100; BMI 18.3
--- NOTE | 2022-09-08 05:33 | PC.NURSE ---
Surgery team called in.
--- NOTE | 2022-09-08 05:34 | PC.NURSE ---
Addendum entered by Morelia Vargas RN 09/08/22 05:49: Patient stable at this time. BP 96/54; HR 90; 98% oxygen and respirations 20. Original Note: RN finished giving bath, patient began vomiting wilbert blood with large amounts of clots. Estimated 350cc blood loss. Assistance requested and hospitalist at bedside. Dr. Prieto notified of patient's acute changes in status. Patient begins to have uncontrollable bowel movements with a strong putrid odor; wilbert and tar tinged stools are noted. banquet supervisor notified of surgery team requested for the OR.
--- NOTE | 2022-09-08 05:48 | EXP.PN ---
Subjective *Date: 09/08/22 *Time: 07:07 Interval history: patient was being given morning care and vomited estimated 350 cc bright red clotted blood and then had 500 cc of dark tarry to red rectal bleeding clotted to watery . BP decreased ot 88 sys . patient alert and talking in no pain but nauseated Exam Data for Last 24 hours Vital signs and Labs for Last 24 Hours: Temp Pulse Resp BP Pulse Ox 97.9 F 80 17 119/62 98 09/07/22 23:54 09/08/22 00:00 09/07/22 23:54 09/07/22 23:54 09/07/22 23:54 Laboratory Results - last 24 hr 09/07/22 07:12: WBC 10.9 H D, RBC 2.61 L, Hgb 8.0 L D, Hct 24.1 L, MCV 92.5, MCH 30.6, MCHC 33.1, RDW 16.3, Plt Count 218 D, MPV 8.7, Neut % (Auto) 72.2, Lymph % (Auto) 23.5, Kimball % (Auto) 3.1, Eos % (Auto) 0.8, Baso % (Auto) 0.4, Neut # (Auto) 7.9 H, Lymph # (Auto) 2.6, Kimball # (Auto) 0.3, Eos # (Auto) 0.1, Baso # (Auto) 0.1 09/07/22 07:12: Sodium 137, Potassium 2.5 L*, Chloride 106, Carbon Dioxide 25, Anion Gap 8.5, BUN 28 H, Creatinine 0.60 D, Estimated Creat Clear 30, Estimated GFR 95, Est GFR ( Amer) 114 D, Glucose 92, Calcium 7.8 L, Total Bilirubin 0.4, AST 21, ALT 9 L, Alkaline Phosphatase 51, Total Protein 4.4 L, Albumin 2.3 L D, Globulin 2.1, Albumin/Globulin Ratio 1.1 09/07/22 07:12: Troponin I 0.06 H 09/07/22 10:46: Sodium 137, Potassium 2.6 L*, Chloride 106, Carbon Dioxide 25, Anion Gap 8.6, BUN 25 H, Creatinine 0.50 L, Estimated Creat Clear 30, Estimated GFR 117, Est GFR ( Amer) 141 D, Glucose 87, Calcium 7.8 L, Total Bilirubin 0.4, AST 20, ALT 10 L, Alkaline Phosphatase 52, Troponin I 0.06 H, Total Protein 4.5 L, Albumin 2.3 L, Globulin 2.2, Albumin/Globulin Ratio 1.0 L 09/07/22 10:46: WBC 10.8, RBC 2.46 L, Hgb 7.5 L, Hct 22.7 L, MCV 92.5, MCH 30.5, MCHC 33.0, RDW 16.2, Plt Count 216, MPV 8.8, Neut % (Auto) 70.1, Lymph % (Auto) 24.2, Kimball % (Auto) 3.2, Eos % (Auto) 2.2, Baso % (Auto) 0.3, Neut # (Auto) 7.6, Lymph # (Auto) 2.6, Kimball # (Auto) 0.4, Eos # (Auto) 0.2, Baso # (Auto) 0.0 09/07/22 14:01: Sodium 137, Potassium 3.2 L D, Chloride 106, Carbon Dioxide 26, Anion Gap 8.2, BUN 22 H, Creatinine 0.50 L, Estimated Creat Clear 30, Estimated GFR 117, Est GFR ( Amer) 141, Glucose 85, Calcium 8.0 L, Troponin I 0.05 H 09/07/22 18:45: WBC 14.2 H D, RBC 2.69 L, Hgb 8.3 L D, Hct 25.1 L, MCV 93.5, MCH 30.8, MCHC 32.9, RDW 16.3, Plt Count 254, MPV 8.9, Neut % (Auto) 75.9, Lymph % (Auto) 20.3, Kimball % (Auto) 3.0, Eos % (Auto) 0.5, Baso % (Auto) 0.4, Neut # (Auto) 10.7 H, Lymph # (Auto) 2.9, Kimball # (Auto) 0.4, Eos # (Auto) 0.1, Baso # (Auto) 0.1 09/07/22 18:45: Sodium 134 L, Potassium 2.9 L*, Chloride 103, Carbon Dioxide 25, Anion Gap 8.9, BUN 17, Creatinine 0.60, Estimated Creat Clear 30, Estimated GFR 95, Est GFR ( Amer) 114, Glucose 105 H D, Calcium 8.2 L, Total Bilirubin 0.3, AST 22, ALT 13 D, Alkaline Phosphatase 62, Total Protein 4.9 L, Albumin 2.5 L, Globulin 2.4, Albumin/Globulin Ratio 1.0 L I & O for Last 24 hours: Intake & Output 09/05/22 09/06/22 09/07/22 09/08/22 23:59 23:59 23:59 23:59 Intake Total 3028 / 3028 Output Total 900 / 900 Balance 2127 / 2127 Weight 44.271 kg 47.4 kg *Routine Abdominal Exam Abdominal: Present soft Comments: no signs of pain , not distended *Routine Neurological Exam Neurological: Present alert Comments: at base line Assessment and Plan *Assessment and plan (1) Acute upper GI bleed: Status: Acute Category: Medical Code(s): K92.2 - Gastrointestinal hemorrhage, unspecified (2) Hypotension due to blood loss: Status: Acute Category: Medical Code(s): I95.89 - Other hypotension; R58 - Hemorrhage, not elsewhere classified Plan general surgeon notified and in route to hospital, plan upper endoscopy and/or surgery. OR team called in, nursing track repair supervisor notified and on floor . bolus 500 cc NS to keep BP sys 90 to 110 , staff instructed after bolus to adjusted NS iv infusion
[2022-09-08 06:06] LABS: Basophils # 0.1 K/mm3 (0-0.2); Basophils % 0.4 % (0.1-2.0); Eosinophils # 0.2 K/mm3 (0.0-0.4); Eosinophils % 1.2 % (0.1-12.0); Lymphocytes # 5.8 K/mm3 (0.7-4.5); Lymphocytes % 34.5 % (10-50); Mean Corpuscular HGB Conc 33.3 g/dL (31.8-35.4); Mean Corpuscular Hemoglobin 30.4 pg (27.0-31.2); Mean Corpuscular Volume 91.3 fl (81-99); Mean Platelet Volume 8.7 fl (7.4-10.4); Monocytes # 0.4 K/mm3 (0.1-1.0); Monocytes % 2.4 % (1.7-9.3); Neutrophils # 10.3 K/mm3 (1.8-7.8); Neutrophils % 61.5 % (37.0-80.0); Platelet Count 296 K/mm3 (142-424); Red Blood Count 2.26 M/mm3 (4.20-5.40); Red Cell Distribution Width 16.4 % (11.5-17.5); White Blood Count 16.7 K/mm3 (4.8-10.8)
[2022-09-08 06:07] LABS: Hemoglobin 6.9 g/dL (12.2-16.2)
[2022-09-08 06:08] LABS: Hematocrit 20.7 % (37.0-47.0)
[2022-09-08 06:09] LABS: MANUAL DIFFERENTIAL MANUAL DIFFERENTIAL (MANUAL DIFF)
[2022-09-08 06:11] LABS: Alanine Aminotransferase 10 U/L (12-78); Albumin Level 2.2 g/dl (3.5-5.0); Alkaline Phosphatase 57 U/L (38-126); Anion Gap 5.9 mEq/L (5-15); Aspartate Amino Transferase 21 U/L (14-36); Bilirubin,Total 0.5 mg/dl (0.2-1.3); Blood Urea Nitrogen 16 mg/dl (7-17); Calcium 8.1 mg/dl (8.4-10.2); Carbon Dioxide 25 mmol/L (22.0-30.0); Chloride 105 mmol/L (98-107); Creatinine Clearance Estimated 29 mL/min (50-200); Estimated Glomerular Filt Rate 95 ml/min (>60); GFR (African American) 114 ML/MIN (>60); Globulin 2.3 g/dL (1.3-3.2); Glucose 119 mg/dl (74-100); Sodium 133 mmol/L (136-145); Total Protein,Serum 4.5 g/dl (6.3-8.2)
[2022-09-08 06:13] LABS: Potassium 2.9 mmoL/L (3.5-5.1)
[2022-09-08 06:34] LABS: Lymphocytes % 30 % (10-50); Monocytes % 5 % (2-9); Neutrophils % 63 % (42-76); Platelet Estimate Normal; RBC Morphology Normal; Rouleaux 1+; Total Cells Counted 100
--- NOTE | 2022-09-08 06:49 | PC.NURSE ---
PTS FAMILY NOTIFIED OF PT CONDITION AND PLAN FOR SURGERY AT 0535. BREANA CEHEK VERIFIED SURGICAL CONSENT OVER THE PHONE WITH THIS RN.
--- NOTE | 2022-09-08 08:29 | SUR.OPER ---
0740- detailed report given to cachorro soliman at our shift change. house furnishings supervisor at bedside.
--- NOTE | 2022-09-08 08:34 | SUR.OPER ---
0886-Dr. Nolan at bedside discussing plan of care with Dr. Prieto
--- NOTE | 2022-09-08 08:56 | SUR.OPER ---
late entry... 0815-pt intubated at this time per JENNI Parson-see anesthesia record for details 858-EGD procedure completed at this time, pt recieved 4 units PRBCs emergent transfusion during procedure as managed per ADIA Pizano RN and ADIA Marquez-see TAR for details, pt hussein well 903-detailed report called to ADIA Pelaez, notified pt remains intubated at this time and will be placed on vent upon arrival to ICU 910-pt transported to ICU room 216 via hospital bed w/bina rails up per ADIA Archer and JENNI Parson, pt monitored via telemetry during tranpsort and ventilated via ambu bag per JENNI Parson
--- NOTE | 2022-09-08 09:14 | HMH.SCOPE ---
Procedure: Date: 09/08/22 Patient Date of :: 1935 Procedure Performed:: Esophagogastroduodenoscopy with injection of epinephrine for control upper GI hemorrhage Indications:: Patient is an 87-year-old female from [place] who was brought into the emergency department with history consistent with upper GI bleeding.? She had a thoracic spine fracture several months ago and has reportedly been taking some NSAIDs for pain relief.? She was admitted with reported episodes of coffee-ground emesis and passage of blood per rectum.? Baseline hemoglobin several months ago was 14.? Hemoglobin upon presentation was 9.1.? Subsequent hemoglobin was 8.0 in the morning of 09/07/2022 after admission overnight and later that morning 7.5.? However, she showed no evidence of clinical bleeding after initial presentation to the emergency department.? She had stool for Hemoccult which was interestingly negative.? Surgical consultation was obtained. Patient was taken to endoscopy and had EGD performed after correction of hypokalemia in the afternoon of 09/03/2022. She was found to have complex ulcers mostly in the proximal duodenum. There was a prepyloric shallow ulcer as well as a ulcer near the pyloric channel. However most notable was complex nearly hemicircumferential ulcer in the first or second portion of the duodenum. There was no stigmata of recent bleeding with no adherent clot and there was no obvious visible vessel although the ulcer was quite complex and large. Due to lack of clearly identifiable source intervention was not able to be performed. Patient was readmitted to the floor and continued on high-dose proton pump inhibitors. Empiric H. pylori therapy was initiated. In the rehabilitation construction specialist hours of 09/08/2022 just after 5 AM she had evidence of recurrent bleeding with gross hematemesis and some relatively fresh blood per rectum. Arrangements were made for emergent to repeat upper endoscopy. Performing Provider:: Kostas Prieto MD Referring Provider:: Chi Nolan MD Sedation:: MAC sedation then general endotracheal tube anesthesia Procedure:: Patient was taken to endoscopy procedure room. She was positioned in a lateral decubitus position. Adequate intravenous sedation was achieved with anesthesia titration of propofol. Olympus endoscope was inserted via the oropharynx. Esophagus was cannulated. Once again there was some mild tortuosity to the esophagus. There was some minimal blood within the esophagus initially noted. Stomach was cannulated. There was some scant blood. Previously noted ulcers were once again identified and nonbleeding in the antrum and prepyloric location. Pylorus was traversed. There was large adherent clot in the duodenum and the second portion of the duodenum in the region of the ulcer. The endoscope was able to be advanced beyond this. Suction was performed evacuating some of the clot but the clot was quite large and adherent. Once some of the ulcer border was identified injection of epinephrine was performed and its periphery to help prevent recurrent bleeding with removal of large clot. Some of the clot was able to be removed with the Garcia net retrieval device. Periodically additional epinephrine was injected as ulcer was visualized. During the procedure the patient had developed some recurrent bleeding which was active. She required transfusion of blood during the procedure. She required intubation by anesthesia. Consideration was being given for emergent laparotomy. However, given the location of this ulcer and its size surgical correction would be rather problematic as it is hemicircumferential large ulcer in the second portion of the duodenum and her computer terminal operator quality of life would be dismal. Ultimately with some additional injection of epinephrine there appeared to be good hemostasis. She still did have well formed adherent clot. She had a total of 25 mL (2.5 mg) of epinephrine injected regionally around
--- NOTE | 2022-09-08 09:54 | P.PN_ITS ---
[facility] Disclaimer: The information contained in this section may have been updated after the patient was seen, as this information can be updated by other users. Medical History (Updated 09/08/22 @ 05:52 by Armando Aquino APRN) Alzheimer disease Hypertension Hypothyroid Surgical History Hx of cholecystectomy Social History Smoking Status: Never smoker alcohol intake: never substance use type: denies use current occupational status: retired Travel in the last 8 weeks: None [facility] Anesthesia Checklist Patient Identification Patient Identification: Arm Band Structural Data Admitted From: Home Planned Operative Procedure/s: EGD Consent for Planned Operative Procedure(s) Verified: Yes Verified Documents: Surgical Consent and History and Physical NPO Status Verified Time NPO: 00:00 Additional verifications Anesthesia Reactions: No Airway Assessment C-Spine Mobility Assessed: Yes TMJ Mobility Assessed: Yes Dentition: Edentulous Neurological Assessment Level of Consciousness: Awake Anesthesia Plan Anesthesia Risk discussed: No (pt with dementia, family not available, emergent procedure) Anesthesia Plan: Not verified due to Patient Condition (dementia) ASA Class: III (E) Anesthesia Type: MAC Preoperative Comments Pre-Operative Comments: Pt brought to endoscopy suite emergently d/t acute GI blood loss. Please see anesthesia record for further details.
--- NOTE | 2022-09-08 10:00 | SUR.PHASEI ---
0915-arrived to ICU at this time, pt placed on vent per respiratory/WORK COUNSELOR and managed per respiratory-see charting for details, additional bedside report given at bedside to ADIA Griffith, pt's recovery to be monitored at bedside in ICU
--- NOTE | 2022-09-08 10:28 | PC.NURSE ---
0945-Phase I completed at bedside at this time, family and MD's at bedside discussing plan of care, Idris PAWs warmer and blankets applied and in place to pt for temperature control-will continue to be monitored by TRACTOR ENGINE MECHANIC, pt left in care of Benigno TRACTOR ENGINE MECHANIC,
--- NOTE | 2022-09-08 14:28 | EXP.PN ---
Subjective *Date: 09/08/22 *Time: 14:28 Interval history: Early this morning around 5 AM patient vomited a significant amount of bright red blood and had a large volume of dark tarry stools. Her blood pressure dropped and Dr. Prieto was called in for an emergent, repeat endoscopy. By late morning patient is back on the floor. I discussed goals of care with her sons and grandsons. We discussed a possible transfer to [facility] for further treatment or not pursuing any further treatment and focusing more on comfort measures. After some discussion amongst themselves and then with patient, patient will be comfort measures only with no more aggressive treatment. Exam Data for Last 24 hours Vital signs and Labs for Last 24 Hours: Temp Pulse Resp BP Pulse Ox 96.1 F L 81 22 135/60 97 09/08/22 11:43 09/08/22 13:00 09/08/22 13:00 09/08/22 13:00 09/08/22 13:00 Laboratory Results - last 24 hr 09/07/22 07:12: Blood Type Confirm AB Positive 09/07/22 14:01: Carbon Dioxide 26, Anion Gap 8.2, BUN 22 H, Creatinine 0.50 L, Estimated Creat Clear 30, Estimated GFR 117, Est GFR ( Amer) 141, Glucose 85, Calcium 8.0 L, Troponin I 0.05 H 09/07/22 18:45: WBC 14.2 H D, RBC 2.69 L, Hgb 8.3 L D, Hct 25.1 L, MCV 93.5, MCH 30.8, MCHC 32.9, RDW 16.3, Plt Count 254, MPV 8.9, Neut % (Auto) 75.9, Lymph % (Auto) 20.3, Crawford % (Auto) 3.0, Eos % (Auto) 0.5, Baso % (Auto) 0.4, Neut # (Auto) 10.7 H, Lymph # (Auto) 2.9, Crawford # (Auto) 0.4, Eos # (Auto) 0.1, Baso # (Auto) 0.1 09/07/22 18:45: Sodium 134 L, Potassium 2.9 L*, Chloride 103, Carbon Dioxide 25, Anion Gap 8.9, BUN 17, Creatinine 0.60, Estimated Creat Clear 30, Estimated GFR 95, Est GFR ( Amer) 114, Glucose 105 H D, Calcium 8.2 L, Total Bilirubin 0.3, AST 22, ALT 13 D, Alkaline Phosphatase 62, Total Protein 4.9 L, Albumin 2.5 L, Globulin 2.4, Albumin/Globulin Ratio 1.0 L 09/08/22 05:45: WBC 16.7 H, RBC 2.26 L, Hgb 6.9 L, Hct 20.7 L*, MCV 91.3, MCH 30.4, MCHC 33.3, RDW 16.4, Plt Count 296, MPV 8.7, Neut % (Auto) 61.5, Lymph % (Auto) 34.5, Crawford % (Auto) 2.4, Eos % (Auto) 1.2, Baso % (Auto) 0.4, Neut # (Auto) 10.3 H, Lymph # (Auto) 5.8 H, Crawford # (Auto) 0.4, Eos # (Auto) 0.2, Baso # (Auto) 0.1, Total Counted 100, Neutrophils % (Manual) 63, Band Neutrophils % 2.0, Lymphocytes % (Manual) 30, Monocytes % (Manual) 5, Platelet Estimate Normal, RBC Morphology Normal, Rouleaux 1+ 09/08/22 05:45: Sodium 133 L, Potassium 2.9 L*, Chloride 105, Carbon Dioxide 25, Anion Gap 5.9, BUN 16, Creatinine 0.60, Estimated Creat Clear 29, Estimated GFR 95, Est GFR ( Amer) 114, Glucose 119 H, Calcium 8.1 L, Total Bilirubin 0.5, AST 21, ALT 10 L, Alkaline Phosphatase 57, Total Protein 4.5 L, Albumin 2.2 L D, Globulin 2.3, Albumin/Globulin Ratio 1.0 L 09/08/22 05:45: Blood Type AB Positive, Antibody Screen Negative, Crossmatch (AHG) See Detail I & O for Last 24 hours: Intake & Output 09/05/22 09/06/22 09/07/22 09/08/22 23:59 23:59 23:59 23:59 Intake Total 3028 / 3028 1500 / 1500 Output Total 900 / 900 600 / 600 Balance 8 / 2127 900 / 900 Weight 44.271 kg 47.4 kg 46.91 kg Constitutional Constitutional: moderate distress (Very weak and fatigued in setting of GI bleed), severe distress, thin, chronically ill appearing and cooperative *Routine HEENT Exam Head: Present normocephalic and atraumatic Eye: Present EOMI and PERRL ENT: Present mucous membranes dry and oropharynx clear *Routine Neck Exam Neck: Present supple and full ROM *Routine Respiratory Exam Respiratory: Present accessory muscle use, crackles and diminished air movement; Absent CTA bilaterally or respiratory distress *Routine Cardiovascular Exam Cardiovascular: Present RRR, Normal S1 and Normal S2; Absent murmur *Routine Abdominal Exam Abdominal: Present soft and normoactive bowel sounds; Absent tenderness, distended, rebound or guarding *Routine Extremities Exam Extremities: Present full ROM, pulses intact and normal capillary refill; Absent edema or t
--- NOTE | 2022-09-08 17:32 | PC.NURSE ---
pt made comfort care this morning after returning to floor from surgery, arrived to floor intubated but was extubated shortly after, has had numerous black bowel movements, also has thrown up 2 X bloody like emesis, pt has remained hypotensive, temperature has remained below normal, zo hugger remains in place, last temp was 97.3, family has remained at bedside t/o shift
--- NOTE | 2022-09-08 20:24 | PC.NURSE ---
PATIENT RESTING QUIETLY. OPENS EYES TO VOICE. NO INDICATIONS OF PAIN AT THIS TIME. FAMILY MEMBERS AT BED SIDE.
--- NOTE | 2022-09-09 02:58 | PC.NURSE ---
AT 0255 PATIENT HAS . PUPILS FIXED. NO SIGNS OF LIFE. DR ARYAN QUIROGA NOTIFIED AND TO COME PRONOUNCE.
--- NOTE | 2022-09-09 03:23 | INFXCTL.NOTE ---
ELIZABETH contacted at this time. Pt information given to Melina Doss. Pt was ruled out by ELIZAEBTH. .
--- NOTE | 2022-09-09 03:30 | PC.NURSE ---
ELIZABETH contacted at this time. Pt information given to Melina Doss. Pt was ruled out by ELIZABETH. .
--- NOTE | 2022-09-09 03:31 | PC.NURSE ---
[facility] NOTIFIED. GALINA GUSMAN SIGNED FOR RELEASE OF BODY. [facility] WAS CONTACTED BY PRODUCER ARBORIST MANAGER. JEFFERY LAURENT PERFORMED.
--- NOTE | 2022-09-09 03:41 | P.DN_ITS ---
Discharge Sum: Prov Provider Primary care physician: Patricia Goodwin APRN Visit Care Team Role Provider Type Patricia Goodwin APRN Primary Care Provider Nurse Practitioner Jeffrey Norman MD Other Providers Staff Physician Ajay Rajan MD Other Providers Staff Physician Kostas Prieto MD Other Providers Staff Physician Lloyd Thorpe MD Emergency Provider Staff Physician Chi Nolan MD Admit Provider Physician Attending Provider Consults: 09/06/22 22:38 General Surgery Consult [Consult to General Surgery] [CONS] Routine Consulting Provider: General Surgery Reason For Consult: gi bleed Discharge Sum: Diag PCOD Cause of : Acute gastrointestinal hemorrhage Contributing Factors (1) Gastric ulcer: Discharge Sum: Summary Date and Time Date of admission: 09/06/22 22:08 Date of : 09/09/22 Time of : 03:04 Hospital Course prior to Hospital Course Information: No concern for infection at this time anion gap metabolic acidosis 87-year-old female brought to the emergency department due to upper GI bleed with coffee- ground emesis and bright red blood per rectum. Prior history of thoracic spine fracture months ago and has been taking NSAIDs. Summary Details: Admitted with acute blood loss anemia. Surgical service consulted and performed upper endoscopy demonstrating complex ulcers mostly in proximal duodenum and in addition to prepyloric ulcer and pyloric channel. Due to comorbidities and frailty with low likelihood of adequate clinical response to surgical procedures patient and family elected to pursue comfort measures. Patient at 3:04 AM on 09/09/2022. Additional Data Confirmation of as documented by pronouncing clinician: no pulse, no respirations, no heart sounds and pupils fixed and dilated Family: at bedside Attending/PCP notified?: Yes Attending physician: Chi Nolan MD Was code activated?: No Autopsy requested?: No land leasing examiner notified?: No Organ bank notified?: Yes Advance directives: No Hospice patient?: No
--- NOTE | 2022-09-09 03:53 | EXP.DEATH.NO ---
Pronouncement Note Date and Time of Date of : 09/09/22 Time of : 03:04 PCOD Preliminary cause of : Acute gastric ulcer with hemorrhage Contributing Factors (1) Gastric ulcer: Summary Additional details: 87-year-old female brought to the emergency department due to upper GI bleed with coffee-ground emesis and bright red blood per rectum.? Prior history of thoracic spine fracture months ago and has been taking NSAID. Admitted with acute blood loss anemia.? Surgical service consulted and performed upper endoscopy demonstrating complex ulcers mostly in proximal duodenum and in addition to prepyloric ulcer and pyloric channel.? Due to comorbidities and frailty with low likelihood of adequate clinical response to surgical procedures patient and family elected to pursue comfort measures.? Patient at 3:04 AM on 09/09/2022. Additional Data Confirmation of : no pulse, no respirations, no heart sounds and pupils fixed and dilated Family: at bedside Attending/PCP notified?: Yes Attending physician: Chi Nolan MD Was code activated?: No Autopsy requested?: No final cigar and box examiner notified?: No Organ bank notified?: Yes Advance directives: No
--- NOTE | 2022-09-09 04:08 | PC.NURSE ---
[facility] HERE FOR B[facility].
--- NOTE | 2022-09-09 04:25 | PC.NURSE ---
Pt left the floor per Luis Cox @ [id number].
== END 2022-09-09 04:20 | disposition expired | DRG 378 ==
LOC: ER 20:35 → 2ND 22:45
PROVIDERS: Nurse Practitioner Family; Surgery; Admitting Provider Emergency Medicine; Emergency Provider Emergency Medicine; PCP Nurse Practitioner; Visit Provider Emergency Medicine
PROC: 0DJ08ZZ Inspection of Upper Intestinal Tract, Via Natural or Artificial Opening Endoscopic (ICD-10-PCS; CPT 43235; principal; 2022-09-07 09:00)
DX: K26.0 Acute duodenal ulcer with hemorrhage (principal); D62 Acute posthemorrhagic anemia; Z51.5 Encounter for palliative care; K29.71 Gastritis, unspecified, with bleeding; G30.9 Alzheimer's disease, unspecified; F02.80 Dementia in other diseases classified elsewhere, unspecified severity, without behavioral disturbance, psychotic disturbance, mood disturbance, and anxiety; I10 Essential (primary) hypertension; E03.9 Hypothyroidism, unspecified; E87.6 Hypokalemia; I95.89 Other hypotension; R77.8 Other specified abnormalities of plasma proteins
CPT/HCPCS: 31500; 94002; 43235; 43255; 36415; 51702; 71045; 74177; 80048; 80053; 81001; 82150; 82272; 82803; 83690; 84436; 84443; 84484; 85007; 85025; 85610; 86850; 93005; 99285; C9803; G0328; J2405; J2704; P9016; Q9967; U0003; U0005